=== PATIENT | female | born 1960 | race Caucasian/White ===

== ENCOUNTER → 2021-04-03 16:18 | Outpatient (CLI) | payer BC, SELFPAY ==
[2021-04-03 17:23] LABS: Absolute Lymphocyte Count 2.59 X10^3/uL (0.83-4.51); Absolute Neutrophil Count 5.1 X10^3/uL (2.0-7.7); Basophil# 0.06 X10^3/uL; Basophil% 0.7 % (0-1); Eosinophil# 0.22 X10^3/uL; Eosinophils% 2.6 % (0-5); Hemoglobin 14.9 g/dL (12.0-15.0); Lymphocyte # 2.59 X10^3/ul (0.83-4.51); Lymphocyte % 30.2 % (19-41); Mean Corp Hgb Conc 31.7 g/dL (32-36); Mean Corpuscular Hgb 31.3 pg (27.0-32.0); Mean Corpuscular Volume 98.7 fL (81-99); Mean Platelet Vol. 11.6 fl (6.2-12.0); Monocyte# 0.59 X10^3/uL; Monocyte% 6.9 % (0-10); NRBC Flagged by Analyzer 0 % (0-5); Neutrophil # 5.09 X10^3/uL (2.7-7.7); Neutrophil % 59.3 % (47-70); Platelet Count 259 K/mm3 (150-450); RBC Distribution Width CV 13.8 % (11.6-14.6); RBC Distribution Width SD 51.1 fl (35.1-43.9); Red Blood Count 4.76 M/mm3 (4.2-5.4); White Blood Count 8.6 K/mm3 (4.4-11.0)
[2021-04-03 20:52] LABS: Progesterone Level < 0.21 ng/mL (See Comment)
[2021-04-03 20:55] LABS: CRP < 2.90 mg/L (0.0-3.0); Estradiol 37.6 pg/mL; Free T3 2.7 pg/mL (2.18-3.98); T4 Free Direct 1.04 ng/dL (0.76-1.46); Thyroid Stim Hormone (TSH) 3.19 uIU/mL (0.358-3.74)
[2021-04-07 17:07] LABS: DHEA Sulfate 82.2 ug/dL (29.4-220.5); Testosterone, Free 0.94 ng/dL (0.10-0.85); Testosterone, Total 36 ng/dL (4-50)
[2021-04-07 19:57] LABS: Thyroid Peroxidase AB < 8 IU/mL (0-34)
== END ==
PROVIDERS: PCP Family Medicine; Visit Provider Preventive Medicine Public Health & General Preventive Medicine
DX: N95.1 Menopausal and female climacteric states (principal)
CPT/HCPCS: 36415; 82627; 82670; 84144; 84402; 84403; 84439; 84443; 84481; 85025; 86140; 86376; 82626

== ENCOUNTER → 2021-10-11 06:31 | Outpatient (CLI) | payer BC, SELFPAY ==
[2021-10-11 07:34] LABS: Absolute Lymphocyte Count 1.83 X10^3/uL (0.83-4.51); Absolute Neutrophil Count 4.5 X10^3/uL (2.0-7.7); Basophil# 0.06 X10^3/uL; Basophil% 0.9 % (0-1); Eosinophil# 0.23 X10^3/uL; Eosinophils% 3.3 % (0-5); Hematocrit 45.1 % (37-47); Hemoglobin 14.9 g/dL (12.0-15.0); Lymphocyte # 1.83 X10^3/ul (0.83-4.51); Mean Corpuscular Hgb 30.8 pg (27.0-32.0); Mean Corpuscular Volume 93.4 fL (81-99); Mean Platelet Vol. 11.6 fl (6.2-12.0); Monocyte# 0.44 X10^3/uL; Monocyte% 6.2 % (0-10); NRBC Flagged by Analyzer 0 % (0-5); Neutrophil # 4.47 X10^3/uL (2.7-7.7); Neutrophil % 63.3 % (47-70); Platelet Count 257 K/mm3 (150-450); RBC Distribution Width CV 13.2 % (11.6-14.6); RBC Distribution Width SD 45.2 fl (35.1-43.9); Red Blood Count 4.83 M/mm3 (4.2-5.4); White Blood Count 7.1 K/mm3 (4.4-11.0)
[2021-10-11 08:18] LABS: ALB/GLOB Ratio 1.1 RATIO (0.9-2.4); AST(SGOT) 17 U/L (15-37); Alanine Aminotransfer ALT/SGPT 32 U/L (13-56); Albumin, Serum 3.7 g/dL (3.2-5.0); Alkaline Phosphatase 66 U/L (45-117); Anion Gap 5 (5-15); BUN 19 mg/dL (7-18); BUN/Creat Ratio 25.9 RATIO (10-20); Calcium,Total 9.5 mg/dL (8.5-10.1); Chloride 106 mmol/L (98-107); Creatinine, Serum 0.73 mg/dL (0.55-1.02); EST Glomerular Filtration Rate 86 mL/min (>60); Est Glom Filt Rate - Afr Amer 104 mL/min (>60); Globulin 3.5 g/dL (2.2-4.2); Glucose 151 mg/dL (74-106); Potassium 4.2 mmol/L (3.5-5.1); Protein, Total 7.2 g/dL (6.4-8.2); Sodium Level 137 mmol/L (136-145); T4 Free Direct 1.01 ng/dL (0.76-1.46); Thyroid Stim Hormone (TSH) 1.41 uIU/mL (0.358-3.74)
[2021-10-12 09:25] LABS: Thyroid Peroxidase AB < 8 IU/mL (0-34)
== END ==
PROVIDERS: PCP Family Medicine
DX: E03.9 Hypothyroidism, unspecified (principal); N95.1 Menopausal and female climacteric states
CPT/HCPCS: 36415; 80053; 84439; 84443; 84481; 85025; 86376

== ENCOUNTER → 2022-06-27 | Outpatient (CLI) | payer BC, SELFPAY ==
[2022-06-27 08:03] LABS: Absolute Lymphocyte Count 1.48 X10^3/uL (0.83-4.51); Absolute Neutrophil Count 3.5 X10^3/uL (2.0-7.7); Basophil# 0.05 X10^3/uL; Basophil% 0.9 % (0-1); Eosinophil# 0.11 X10^3/uL; Hematocrit 47.6 % (37-47); Hemoglobin 15.2 g/dL (12.0-15.0); Lymphocyte # 1.48 X10^3/ul (0.83-4.51); Lymphocyte % 26.8 % (19-41); Mean Corp Hgb Conc 31.9 g/dL (32-36); Mean Corpuscular Hgb 30.3 pg (27.0-32.0); Mean Platelet Vol. 11.3 fl (6.2-12.0); Monocyte# 0.36 X10^3/uL; Monocyte% 6.5 % (0-10); NRBC Flagged by Analyzer 0 % (0-5); Neutrophil # 3.49 X10^3/uL (2.7-7.7); Neutrophil % 63.3 % (47-70); Platelet Count 264 K/mm3 (150-450); RBC Distribution Width CV 13.8 % (11.6-14.6); RBC Distribution Width SD 48.8 fl (35.1-43.9); Red Blood Count 5.01 M/mm3 (4.2-5.4); White Blood Count 5.5 K/mm3 (4.4-11.0)
[2022-06-27 15:02] LABS: AST(SGOT) 16 U/L (15-37); Alanine Aminotransfer ALT/SGPT 49 U/L (13-56); Albumin, Serum 3.6 g/dL (3.2-5.0); Alkaline Phosphatase 75 U/L (45-117); Anion Gap 8 (5-15); BUN 28 mg/dL (7-18); BUN/Creat Ratio 34.1 RATIO (10-20); Calcium,Total 9.9 mg/dL (8.5-10.1); Chloride 105 mmol/L (98-107); Creatinine, Serum 0.82 mg/dL (0.55-1.02); EST Glomerular Filtration Rate 75 mL/min (>60); Est Glom Filt Rate - Afr Amer 91 mL/min (>60); Estradiol 27.4 pg/mL; Free T3 2.5 pg/mL (2.18-3.98); Globulin 3.6 g/dL (2.2-4.2); Glucose 122 mg/dL (74-106); Potassium 3.9 mmol/L (3.5-5.1); Protein, Total 7.2 g/dL (6.4-8.2); Sodium Level 141 mmol/L (136-145); Thyroid Stim Hormone (TSH) 3.59 uIU/mL (0.358-3.74)
[2022-06-28 08:09] LABS: DHEA Sulfate 77.4 ug/dL (29.4-220.5)
[2022-06-28 16:32] LABS: Thyroid Peroxidase AB < 9 IU/mL (0-34)
== END | disposition home or self-care (01) ==
LOC: LAB 07:03
PROVIDERS: PCP Family Medicine
DX: E03.9 Hypothyroidism, unspecified (principal); N95.1 Menopausal and female climacteric states
CPT/HCPCS: 36415; 80053; 82627; 82670; 84144; 84403; 84439; 84443; 84481; 85025; 86376; 82626

== ENCOUNTER → 2022-12-17 | Outpatient (CLI) | payer BC, SELFPAY ==
[2022-12-17 07:02] LABS: Absolute Lymphocyte Count 1.59 X10^3/uL (0.83-4.51); Absolute Neutrophil Count 3.1 X10^3/uL (2.0-7.7); Basophil# 0.04 X10^3/uL; Basophil% 0.8 % (0-1); Eosinophil# 0.11 X10^3/uL; Eosinophils% 2.1 % (0-5); Hematocrit 46.2 % (37-47); Hemoglobin 15.1 g/dL (12.0-15.0); Lymphocyte # 1.59 X10^3/ul (0.83-4.51); Lymphocyte % 30.9 % (19-41); Mean Corp Hgb Conc 32.7 g/dL (32-36); Mean Corpuscular Hgb 29.8 pg (27.0-32.0); Mean Corpuscular Volume 91.3 fL (81-99); Mean Platelet Vol. 10.5 fl (6.2-12.0); Monocyte# 0.29 X10^3/uL; Monocyte% 5.6 % (0-10); NRBC Flagged by Analyzer 0 % (0-5); Neutrophil % 60.2 % (47-70); Platelet Count 262 K/mm3 (150-450); RBC Distribution Width CV 14.3 % (11.6-14.6); RBC Distribution Width SD 47.7 fl (35.1-43.9); Red Blood Count 5.06 M/mm3 (4.2-5.4); White Blood Count 5.2 K/mm3 (4.4-11.0)
[2022-12-17 08:09] LABS: ALB/GLOB Ratio 1.1 RATIO (0.9-2.4); AST(SGOT) 26 U/L (15-37); Alanine Aminotransfer ALT/SGPT 60 U/L (13-56); Albumin, Serum 3.7 g/dL (3.2-5.0); Alkaline Phosphatase 83 U/L (45-117); Anion Gap 5 (5-15); BUN 22 mg/dL (7-18); Calcium,Total 10.3 mg/dL (8.5-10.1); Chloride 107 mmol/L (98-107); Creatinine, Serum 0.61 mg/dL (0.55-1.02); EST Glomerular Filtration Rate 106 mL/min (>60); Est Glom Filt Rate - Afr Amer 128 mL/min (>60); Estradiol 16.2 pg/mL; Free T3 2.4 pg/mL (2.18-3.98); Globulin 3.4 g/dL (2.2-4.2); Glucose 118 mg/dL (74-106); Protein, Total 7.1 g/dL (6.4-8.2); Sodium Level 138 mmol/L (136-145); T4 Free Direct 1.02 ng/dL (0.76-1.46); Thyroid Stim Hormone (TSH) 0.06 uIU/mL (0.358-3.74)
[2022-12-17 09:00] LABS: Progesterone Level 0.26 ng/mL (See Comment)
[2022-12-18 11:13] LABS: Hemoglobin A1c 5.8 % (3.8-5.6)
[2022-12-21 12:08] LABS: DHEA Sulfate 75.9 ug/dL (29.4-220.5); Testosterone, Free 0.53 ng/dL (0.10-0.85); Testosterone, Total 41 ng/dL (4-50); Thyroid Peroxidase AB 12 IU/mL (0-34)
== END | disposition home or self-care (01) ==
LOC: LAB 06:42
PROVIDERS: PCP Family Medicine
DX: N95.1 Menopausal and female climacteric states (principal); E11.9 Type 2 diabetes mellitus without complications; E03.9 Hypothyroidism, unspecified
CPT/HCPCS: 36415; 80053; 82627; 82670; 83036; 84144; 84402; 84403; 84439; 84443; 84481; 85025; 86376; 82626

== ENCOUNTER → 2023-08-01 | Outpatient (CLI) | payer BC, SELFPAY ==
--- OUTSIDE RECORDS SUMMARY | 2023-08-01 06:24 | XMS RPT_ITS | CCD ---
Author Name Unknown Address [address] [place] [address] Organization [facility] Care Team Providers Care Dry End Tester Name Role Phone Allen, Jennifer Unavailable Unavailable Allen, Jennifer Unavailable Unavailable Allen, Jennifer Unavailable Unavailable ALLEN, JENNIFER HUBERT Unavailable Unava ilable Sandra Cabezas Primary Care Provider Sandra Cabezas MD Primary Care Provider Sandra Cabezas MD Primary Care Provider Sandra Cabezas Attending Unavailable Sandra Cabezas Referring Unavailable Sandra Cabezas Primary Care Unavailable Sandra Cabezas Referring Unavailable Sandra Cabezas Primary Care Unavailable Sandra Cabezas Attending Unavailable Sandra Cabezas MD Primary Care Provider [phone] SANDRA CABEZAS Attending Unavailable SANDRA CABEZAS Primary Care Unavailable Sandra Cabezas MD Primary Care Provider Allergies Allergy Classification Reported Allergen(s) Allergy Type Date of Onset Reaction(s) Facility (8 sources) calamine; Translations: [CALAMINE] Drug Allergy 6 [facility] Other [facility] (6 sources) amLODIPine Drug Allergy 8 [place] (4 sources) Lisinopril Drug Allergy 8 Other (See Comments) [place] (4 sources) POISON NATALIE EXTRACT Drug Allergy 6 [place] (2 sources) Lisinopril Propensity to adverse reactions 8 Other [facility] Medications Current Medications Medication Drug Class(es) Dates Sig (Normalized) Sig (Original) ascorbic acid 500 mg oral tablet (4 sources) Vitamin C take 1 tablet by mouth once daily vitamin C (ASCORBIC ACID) 500 MG tablet Indications: High dose vit C Take by mouth daily Indications: High dose vit C 0 Active cholecalciferol 0.25 mg oral tablet (4 sources) Vitamin D take 1 tablet by mouth once daily Cholecalciferol (VITAMIN D3) 61369 units TABS Take 1 tablet by mouth daily 0 Active 168 hr cloNIDine 0.33270 mg/hr transdermal system (4 sources) Central alpha-2 Adrenergic Agonist Start: 03-24-2021 apply 1 dose transdermal route every week cloNIDine (CATAPRES) 0.2 MG/24HR PTWK Indications: Essential hypertension, benign Place 1 patch onto the skin once a week 4 patch 12 03/24/2021 Active Completed/Discontinued Medications Medication Drug Class(es) Dates Sig (Normalized) Sig (Original) diphenhydrAMINE (1 source) Histamine-1 Receptor Antagonist diphenhydramine HCl (BENADRYL ALLERGY ORAL) Take by mouth. 0 Active Problems Active Problems Problem Classification Problem Date Documented Date Episodic/Chronic Diabetes mellitus without complication (3 sources) Impaired fasting glycemia; Translations: [Impaired fasting glucose] Onset: 04-12-2023 04-12-2023 Episodic Essential hypertension (13 sources) Essential (primary) hypertension; Translations: [Benign essential hypertension] Onset: 11-23-2016 01-22-2017 Chronic Other nutritional; endocrine; and metabolic disorders (6 sources) Severe obesity; Translations: [Morbid (severe) obesity due to excess calories] Onset: 03-04-2018 03-04-2018 Chronic Residual codes; unclassified (1 source) Postmenopausal state; Translations: [Postmenopausal] Episodic Thyroid disorders (11 sources) Thyroid nodule; Translations: [Hypothyroidism] Onset: 11-23-2016 03-12-2017 Chronic Unclassified (4 sources) Encounter for screening mammogram for malignant neoplasm of breast; Translations: [Patient encounter status] Onset: 02-10-2018 Episodic Unclassified (2 sources) Patient encounter status; Translations: [Screening for osteoporosis] Past or Other Problems Problem Classification Problem Date Documented Da te Episodic/Chronic Allergic reactions (8 sources) Allergic disposition; Translations: [Other allergy status, other than to drugs and biological substances] Onset: 11-23-2016 03-12-2017 Episodic Diabetes mellitus without complication (3 sources) Type 2 diabetes mellitus without complication; Translations: [Type 2 diabetes mellitus without complications] Onset: 03-24-2021 Resolved: 04-12-2023 03-24-2021 Chronic Nonmalignant breast conditions (2 sources) Solitary cyst of left breast; Translations: [Solitary cyst of left breast] Onset: 05-04-2021 Episodic Results Test Name Value Interpretation Reference Range Facil ity Vital Signs Date Time Vital Sign Value Performing Clinician Faci lity 04-12-2023 08:29-0400 Body height 152.4 cm Sandra Cabezas MD Work Phone: [employer] 04-12-2023 08:29-0400 Body mass index (BMI) [Ratio] 41.25 kg/m2 Sandra Cabezas MD Work Phone: [employer] 04-12-2023 08:29-0400 Body temperature 98.2 [degF] Sandra Cabezas MD Work Phone: [employer] 04-12-2023 08:29-0400 Body weight 95.8 kg Sandra Cabezas MD Work Phone: [employer] 04-12-2023 08:29-0400 Diastolic blood pressure 80 mm[Hg] Sandra Cabezas MD Work Phone: [employer] 04-12-2023 08:29-0400 Heart rate 89 /min Sandra Cabezas MD Work Phone: [employer] 04-12-2023 08:29-0400 SaO2% (BldA) [Mass fraction] 96 % Sandra Cabezas MD Work Phone: [employer] 04-12-2023 08:29-0400 Systolic blood pressure 141 mm[Hg] Sandra Cabezas MD Work Phone: [employer] 02-01-2022 16:22-0400 Body temperature 97.7 [degF] Melina Castro APRN.LOCKER ROOM CLERK Work Phone: [facility] 02-01-2022 16:22-0400 Body weight 122.47 kg Melina Castro APRN.LOCKER ROOM CLERK Work Phone: [facility] 02-01-2022 16:22-0400 Diastolic blood pressure 90 mm[Hg] Melina Pramaxxler-Wood GUITAR MAKER HAND.LOCKER ROOM CLERK Work Phone: [facility] 02-01-2022 16:22-0400 Heart rate 83 /min Melina Pramaxxler-Wood GUITAR MAKER HAND.LOCKER ROOM CLERK Work Phone: [facility] 02-01-2022 16:22-0400 Respiratory rate 16 /min Melina Pramaxxler-Wood GUITAR MAKER HAND.LOCKER ROOM CLERK Work Phone: [facility] 02-01-2022 16:22-0400 SaO2% (BldA) [Mass fraction] 97 % Melina Praisler-Wood GUITAR MAKER HAND.LOCKER ROOM CLERK Work Phone: [facility] 02-01-2022 16:22-0400 Systolic blood pressure 142 mm[Hg] Melina Praisler-Wood GUITAR MAKER HAND.[facility] Work Phone: [facility] 04-24-2019 14:33-0400 BP Diastolic 92 mm[Hg] [place], [place] 04-24-2019 14:33-0400 BP Systolic 173 mm[Hg] [place] 04-24-2019 14:33-0400 Pulse (Heart Rate) 94 /min [facility]ayeli [facility] [place] [facility] [place] 04-24-2019 14:33-0400 Pulse Oximetry 94 % [place], [place] 04-24-2019 14:33-0400 Respiratory Rate 18 /min Milnor Nicholas [place], [place] Encounters Encounter Date Encounter Type Care Provider Facility Start: 06-10-2023 Orders Only Sandra valles MD Work Phone: [facility] Family Medicine Procedures Date Procedure Procedure Detail Performing Clinician Start: 04-12-2023 Adult depression scr eening assessment Sandra Cabezas MD Work Phone: Start: 04-12-2023 Lipid 1996 panel - S tez or Plasma Sandra Cabezas MD Work Phone: Start: 04-12-2023 Thyrotropin [Units/v olume] in Serum or Plasma Sandra Cabezas MD Work Phone: Start: 05-01-2022 Mammography Sandra adames MD Work Phone: Start: 04-06-2022 Lipid 1996 panel - S tez or Plasma Sandra Cabezas MD Work Phone: Start: 04-06-2022 Thyrotropin [Units/v olume] in Serum or Plasma Sandra Cabezas MD Work Phone: Start: 04-24-2021 Screening digital br [facility] Sandra Cabezas MD Work Phone: Start: 04-24-2019 Us guidance needle placement img s&i Nayeli Shane Work Phone: Start: 02-10-2018 Mammography Melina Lee APRN.CNP Work Phone: Plan of Treatment Date Care Activity Detail Author Start: 04-12-2028 Lipid panel Lipid Panel [facility] Start: 04-06-2027 Lipid panel Lipid Panel [facility] Start: 04-15-2024 End: 04-15-2024 Patient encounter procedure [facility] Start: 04-12-2024 Depression Screening Depression Scre ening [facility] Start: 04-12-2024 Diabetes mellitus screening Diabetes Screening [facility] Start: 04-12-2024 Thyroid stimulating hormone measurement TSH Level [facility] Start: 03-04-2024 Lipid screen [facility] screen [facility] [place] Start: 05-01-2023 Screening for malign ant neoplasm of breast Mammogram [facility] Start: 04-24-2023 Screening for malign ant neoplasm of breast Breast cancer screen [facility] Work Phone: Start: 04-12-2023 End: 04-12-2024 CBC panel - Blood by Automated count CBC Lab Routine Routine adult health maintenance Expected: 04/12/2023 (Approximate), Expires: 04/12/2024 [facility] Payers Date Payer Category Payer Unknown 2021 Unknown ANTHEM BLUE ACCE SS PPO [id number] 2021-Present [phone] [address] [place] [address] PPO [id number] 2021 Unknown [id number] 2019 Unknown BCBS [place] P PO [id number] 2019-Present [address] [place] [address] [id number] 2015 Unknown BCBS ANTHEM BLUE ACCESS GWEN xxxxxxxxxxxx 2015-Present [address] [place] [address] xxxxxxxxxxxx [id number] 1960 Unknown [id number] 1960 Unknown [id number] Social History Date Type Detail Facility Start: 04-24-2019 End: 04-12-2023 Tobacco smoking status NHIS Former smoker [facility] End: 03-11-1975 History of tobacco use Cigarette Smoker [place] Start: 04-24-2019 End: 04-12-2023 Alcohol intake Yes [place] Start: 09-04-2018 Tobacco Comment smoker x 2 yea rs as a teenager [place] Start: 09-04-2018 Alcohol Comment 2 drinks per month [place], [place] Start: 1960 Sex Assigned At Not on file [place] End: 03-11-1975 History of tobacco use Current smoker [facility] Start: 03-24-2021 End: 04-12-2023 Cigarettes smoked current (pack per day) - Reported [facility] Work Phone: Start: 03-24-2021 End: 04-12-2023 Tobacco use and exposure Never used [facility] Start: 03-24-2021 End: 02-01-2022 Alcohol intake [facility]: Start: 03-24-2021 History SDOH Alcohol Frequency [address] [facility] Work [facility]: Start: 03-24-2021 History SDOH Alcohol Std Drinks 1 [employer] Work Phone: Start: 03-24-2021 History SDOH Social Connections Phone [address] [facility] Work [facility]: Start: 03-24-2021 History SDOH Physica l Activity DPW [address] [facility] Work Phone: Start: 01-22-2022 End: 02-01-2022 Exposure to SARS-CoV-2 (event) Not sure [facility] History of tobacco use Passive smoker [facility] Start: 04-12-2023 Alcohol intake Ex-drinker (finding) [facility] Start: 1960 Sex Assigned At Female [facility] Start: 04-08-2023 Gender identity Identifies as female gender (finding) [facility] Start: 04-08-2023 Sexual orientation Heterosexual (fin ding) [facility] Goals Date Patient Goal Desired Activity /State Clinical Notes 02-01-2022 to 04-12-2023 Assessment & Plan Note - Sandra Caebzas MD - 04/12/2023 9:13 AM EDTAssessment & Plan Note - Sandra Cabezas MD - 04/12/2023 9:13 AM EDTGdariel Cabezas MD - 04/12/2023 8:20 AM EDT Note Date & Type Note Facility 04-12-2023 Evaluation + Plan note Associated Problem(s): Hypoactive thyroid Chronic, stable Feeling better. Not on medicines Check the labs [facility] 04-12-2023 Evaluation + Plan note Associated Problem(s): Essential hypertension, benign Chronic, stable Tolerates the metoprolol Does is half of what it was Check the labs Adjust the dose if indicated [facility] 04-12-2023 Miscellaneous Notes Associated Problem(s): Hypoactive thyroid Chronic, stable Feeling better. Not on medicines Check the labs Associated Problem(s): Essential hypertension, benign Chronic, stable Tolerates the metoprolol Does is half of what it was Check the labs Adjust the dose if indicated documented in this encounter [facility] 04-12-2023 History of Presen t illness Narrative Subjective Patient ID: Griselda Duron is a 62 y.o. female who presents for Annual Exam (Pt is fasting./No questions or concerns when asked/BP readings are good at home) and Med Refill (Pending.). Has lost 50# in the past year. Lost 15# from 2020 to 2021. Watching the carbs and no sugar. Walks 15 minutes each morning. Is feeling this is sustainable. BP at home has been. Watches the salt in the diet. Feels so much better. Last A1C 5.5 in December. Chart reviewed. Review of Systems Constitutional: Positive for activity change and appetite change. Eyes: Negative for visual disturbance. Respiratory: Negative for chest tightness and shortness of breath. Cardiovascular: Negative for chest pain and leg swelling. Gastrointestinal: Negative for abdominal pain, blood in stool, constipation and diarrhea. Endocrine: Negative for polydipsia, polyphagia and polyuria. Genitourinary: Negative for difficulty urinating, dysuria and hematuria. Psychiatric/Behavioral: Negative for sleep disturbance. Objective Physical Exam Vitals and nursing note reviewed. Constitutional: General: She is not in acute distress. Appearance: She is not ill-appearing or toxic-appearing. HENT: Right Ear: Tympanic membrane normal. Left Ear: Tympanic membrane normal. Nose: Nose normal. Mouth/Throat: Pharynx: No oropharyngeal exudate or posterior oropharyngeal erythema. Eyes: General: No scleral icterus. Conjunctiva/sclera: Conjunctivae normal. Pupils: Pupils are equal, round, and reactive to light. Neck: Vascular: No carotid bruit. Cardiovascular: Rate and Rhythm: Normal rate and regular rhythm. Heart sounds: Normal heart sounds. No murmur heard. Pulmonary: Effort: Pulmonary effort is normal. No respiratory distress. Breath sounds: Normal breath sounds. Abdominal: General: Bowel sounds are normal. There is no distension. Tenderness: There is no abdominal tenderness. There is no right CVA tenderness or left CVA tenderness. Musculoskeletal: Cervical back: Neck supple. Lymphadenopathy: Cervical: No cervical adenopathy. Skin: General: Skin is warm and dry. Capillary Refill: Capillary refill takes less than 2 seconds. Coloration: Skin is not jaundiced. Neurological: Mental Status: She is alert and oriented to person, place, and time. Cranial Nerves: No cranial nerve deficit. Psychiatric: Thought Content: Thought content normal. Assessment/Plan Problem List Items Addressed This Visit Circulatory Essential hypertension, benign Chronic, stable Tolerates the metoprolol Does is half of what it was Check the labs Adjust the dose if indicated Relevant Medications metoprolol succinate XL (Toprol-XL) 25 MG 24 hr tablet Endocrine/Metabolic Hypoactive thyroid Chronic, stable Feeling better. Not on medicines Check the labs Relevant Orders TSH Other Visit Diagnoses Routine adult health maintenance - Primary Relevant Orders Lipid panel Comprehensive metabolic panel CBC IFG (impaired fasting glucose) Relevant Orders Hemoglobin A1c documented in this encounter [facility] 02-01-2022 Note HNO ID: [id number] Author: Melina Castro APRN.LOCKER ROOM CLERK Service: ? Author Type: Nurse Practitioner Type: Progress Notes Filed: 02/01/2022 4:36 PM Note Text: Subjective HPI Griselda Duron is a 61 year old female who presents with a rash present on bilateral arms and hands for the past week. She was pulling weeds and believes she pulled some poison sumac. She has been using Armor Gel on the rash and benadryl for the itching. She states the rash bray at time. She denies fever. No airway involvement. Review of Systems Constitutional: Negative for fever. HENT: Negative for sore throat. Respiratory: Negative for shortness of breath. Cardiovascular: Negative. Skin: Positive for itching and rash. BP 142/90 Pulse 83 Temp 36.5 ?C (97.7 ?F) Resp 16 Wt 122.5 kg (270 lb) SpO2 97% BMI 49.38 kg/m? PAST MEDICAL HISTORY Diagnosis Date - History of environmental allergies 11/23/2016 - Hypertension 11/23/2016 PAST SURGICAL HISTORY Procedure Laterality Date - HYSTERECTOMY HX ALLERGIES Calamine MEDICATIONS diphenhydramine HCl (BENADRYL ALLERGY ORAL) Take by mouth. cloNIDine TTS (CATAPRES-TTS) 0.1 mg/24 hr Apply 1 Patch as directed once each week. metoprolol tartrate, short acting, (LOPRESSOR) 50 mg tablet Take 1 tablet by mouth daily at bedtime. valsartan (DIOVAN) 320 mg tablet Take 1 tablet by mouth once daily. predniSONE (DELTASONE) 10 mg tablet Take 4 tabs daily for 3 days, then 2 tabs daily for 3 days, then 1 tab daily for 3 days with food. triamcinolone (KENALOG) 0.025 % cream Apply 1 application to affected area twice daily. No family history on file. Social History Tobacco Use - Smoking status: Former Smoker - Smokeless tobacco: Never Used - Tobacco comment: quit 20 years ago Substance Use Topics - Alcohol use: Yes Comment: occ - Drug use: Not Currently Objective Physical Exam Vitals and nursing note reviewed. Constitutional: Appearance: She is obese. Cardiovascular: Rate and Rhythm: Normal rate and regular rhythm. Heart sounds: Normal heart sounds. Pulmonary: Effort: Pulmonary effort is normal. No respiratory distress. Breath sounds: Normal breath sounds. No stridor. No wheezing or rales. Skin: General: Skin is warm and dry. Findings: Erythema and rash present. Neurological: Mental Status: She is alert. ASSESSMENT/PLAN: 1. Dermatitis due to plants, including poison natalie, sumac, and oak - ICD9: 692.6, ICD10: L25.5 - Oral Steriod tx -Prednisone taper - Topical steriod tx with Rx for steriod cream/ointment- see orders - Anti itch therapy of Oral Benydryl recommended prn - discussed skin care of rash - follow up if symptoms persist or worsen. - PREDNISONE 10 MG TABLET - TRIAMCINOLONE ACETONIDE 0.025 % TOPICAL CREAM - Follow-up with your PCP in 3-5 days if symptoms have not improved or sooner if symptoms worsen - Discussed red flags and need for immediate medical evaluation if any occur. - Discussed supportive care treatment with fluids, rest and analgesia. - Discussed expected course of illness Melina Castro APRN.[facility] 02-01-2022 History of Presen t illness Narrative Images from the original note were not included. Subjective HPI Griselda Duron is a 61 year old female who presents with a rash present on bilateral arms and hands for the past week. She was pulling weeds and believes she pulled some poison sumac. She has been using Armor Gel on the rash and benadryl for the itching. She states the rash bray at time. She denies fever. No airway involvement. Review of Systems Constitutional: Negative for fever. HENT: Negative for sore throat. Respiratory: Negative for shortness of breath. Cardiovascular: Negative. Skin: Positive for itching and rash. BP 142/90 Pulse 83 Temp 36.5 C (97.7 F) Resp 16 Wt 122.5 kg (270 lb) SpO2 97% BMI 49.38 kg/m PAST MEDICAL HISTORY Diagnosis Date History of environmental allergies 11/23/2016 Hypertension 11/23/2016 PAST SURGICAL HISTORY Procedure Laterality Date HYSTERECTOMY HX ALLERGIES [facility] MEDICATIONS diphenhydramine HCl (BENADRYL ALLERGY ORAL) Take by mouth. cloNIDine TTS (CATAPRES-TTS) 0.1 mg/24 hr Apply 1 Patch as directed once each week. metoprolol tartrate, short acting, (LOPRESSOR) 50 mg tablet Take 1 tablet by mouth daily at bedtime. valsartan (DIOVAN) 320 mg tablet Take 1 tablet by mouth once daily. predniSONE (DELTASONE) 10 mg tablet Take 4 tabs daily for 3 days, then 2 tabs daily for 3 days, then 1 tab daily for 3 days with food. triamcinolone (KENALOG) 0.025 % cream Apply 1 application to affected area twice daily. No family history on file. Social History Tobacco Use Smoking status: Former Smoker Smokeless tobacco: Never Used Tobacco comment: quit 20 years ago Substance Use Topics Alcohol use: Yes Comment: occ Drug use: Not Currently Objective Physical Exam Vitals and nursing note reviewed. Constitutional: Appearance: She is obese. Cardiovascular: Rate and Rhythm: Normal rate and regular rhythm. Heart sounds: Normal heart sounds. Pulmonary: Effort: Pulmonary effort is normal. No respiratory distress. Breath sounds: Normal breath sounds. No stridor. No wheezing or rales. Skin: General: Skin is warm and dry. Findings: Erythema and rash present. Neurological: Mental Status: She is alert. ASSESSMENT/PLAN: 1. Dermatitis due to plants, including poison natalie, sumac, and oak - ICD9: 692.6, ICD10: L25.5 - Oral Steriod tx -Prednisone taper - Topical steriod tx with Rx for steriod cream/ointment- see orders - Anti itch therapy of Oral Benydryl recommended prn - discussed skin care of rash - follow up if symptoms persist or worsen. - PREDNISONE 10 MG TABLET - TRIAMCINOLONE ACETONIDE 0.025 % TOPICAL CREAM - Follow-up with your PCP in 3-5 days if symptoms have not improved or sooner if symptoms worsen - Discussed red flags and need for immediate medical evaluation if any occur. - Discussed supportive care treatment with fluids, rest and analgesia. - Discussed expected course of illness Melina Castro APRN.REEMA documented in this encounter [facility] 02-01-2022 Instructions Melina Castro APRN.REEMA - 02/01/2022 4:31 PM EDT ASSESSMENT/PLAN: 1. Dermatitis due to plants, including poison natalie, sumac, and oak - ICD9: 692.6, ICD10: L25.5 - Oral Steriod tx -Prednisone taper - Topical steriod tx with Rx for steriod cream/ointment- see orders - Anti itch therapy of Oral Benydryl recommended prn - discussed skin care of rash - follow up if symptoms persist or worsen. - PREDNISONE 10 MG TABLET - TRIAMCINOLONE ACETONIDE 0.025 % TOPICAL CREAM - Follow-up with your PCP in 3-5 days if symptoms have not improved or sooner if symptoms worsen - Discussed red flags and need for immediate medical evaluation if any occur. - Discussed supportive care treatment with fluids, rest and analgesia. - Discussed expected course of illness Melina Castro APRN.[facility] PATIENT INFO POISON NATALIE INTRODUCTION When the skin comes in direct contact with an irritating or allergy-causing substance, contact dermatitis can develop. Exposure to poison natalie, poison oak, and poison sumac cause more cases of allergic contact dermatitis than all other plant families combined. People of all ethnicities and skin types are at risk for developing poison natalie dermatitis. The severity of the reaction tends to decrease with age, especially in people who have had mild reactions in the past. People in occupations such as firefighting, forestry, and farming are at a higher risk of poison natalie dermatitis because of repeated exposure to toxic plants. POISON NATALIE CAUSES Poison natalie, poison oak, and poison sumac plants all contain a compound called urushiol, which is a light, colorless oil that is found on the fruit, leaves, stem, root, and sap of the plant. When urushiol is exposed to air, it turns brown and the plant leaves develop small black spots. There are several ways that you can be exposed to urushiol: By touching the sap or rubbing against the leaves of the toxic plant By touching something that has urushiol on it, such as animal fur or garden tools By breathing in smoke when toxic plants are burned Ginkgo fruit and the skin of mangoes also contain urushiol and can produce symptoms similar to poison natalie dermatitis. IDENTIFYING POISON NATALIE Leaves of three, let them be is a phrase often used to identify plants that cause poison natalie dermatitis. Generally, poison natalie and poison oak have three leaves with flowering branches on a single stem. Poison sumac has five, seven, or more leaves that angle upward toward the top of the stem. Some types of poison natalie produce a green or off-white fruit in elvira, and in some cases, black dots form on the plants' leaves. It is not always possible to identify the plant by the leaves alone since the appearance can vary depending upon the season, growth cycle, region, and climate. Poison natalie, oak, and sumac plants grow in many areas across the [facility] and throughout the world. East of the [facility], poison natalie commonly grows as a climbing vine. In the [place] area and west, poison natalie tends to grow low to the ground as a shrub. Poison oak most often grows west of the [facility], and poison gideon inhabits boggy areas in the southeastern part of the [facility]. The plants are not usually found in areas at high elevations or in desert climates. POISON NATALIE SIGNS AND SYMPTOMS After contact with urushiol, approximately 50 percent of people develop signs and symptoms of poison natalie dermatitis. The symptoms and severity differ from person to person. The most common signs and symptoms of poison natalie dermatitis are: Intense itching Skin swelling Skin redness These symptoms usually develop within four hours to four days after exposure to the urushiol. After the initial symptoms, you will develop fluid-filled blisters in a line or streak-like pattern. The symptoms are worst within 1 to 14 days after touching the plant, but can develop up to 21 days later if you have never been exposed to urushiol before. The blisters can occur at different times in different people; blisters can develop on the arms several days after blisters on the hands developed. This does not mean that the reaction is spreading from one area of the body to the other. The fluid that leaks from blisters does not cause symptoms. Poison natalie dermatitis is not contagious and cannot be passed from person to person. However, urushiol can be carried under fingernails and on clothes; if another person comes in contact with the urushiol, they can develop poison natalie dermatitis. POISON NATALIE DIAGNOSIS Poison natalie is usually diagnosed based upon how your skin looks. Further testing is not usually necessary. POISON NATALIE TREATMENT Poison natalie dermatitis usually resolves within one to three weeks without treatment. Treatments that may help relieve the itching, soreness, and discomfort caused by poison natalie dermatitis include: Skin treatments For some people, adding oatmeal to a bath, applying cool wet compresses, and applying calamine lotion may help to relieve itching. Once the blisters begin weeping fluid, astringents containing aluminum acetate (Ashleigh's solution) and [place] may help to relieve the rash. Antihistamines Antihistamines may help to relieve itching caused by poison natalie dermatitis. Some antihistamines make you sleepy while others do not. Antihistamines that make you sleepy (eg, diphenhydramine [Benadryl ]) may be helpful if you have trouble sleeping due to itching. Other formulas (eg, loratadine [Claritin ], cetirizine [Zyrtec ]) may be preferable for daytime. Steroid creams Steroid creams may be helpful if they are used during the first few days after symptoms develop. Low potency steroid creams, such as 1 percent hydrocortisone (available in the [place] without prescription) are not usually helpful. A stronger prescription formula may be helpful. Steroids If you develop severe symptoms or the rash covers a large area (especially on the face or genitals), you may need steroid pills or injections (eg, prednisone) to help relieve itching and swelling. Pills are usually given for 14 to 21 days, with the dosage slowly decreased over time. Antibiotics Skin infections are a potential complication of poison natalie, especially if you scratch your skin. If you develop a skin infection because of poison natalie dermatitis, you may need antibiotics to treat the infection. Other treatments An herbal therapy called jewelweed extract has been used to treat poison natalie dermatitis, although it has not been proven effective. You should not use antihistamine creams or lotions, anesthetic creams containing benzocaine, or antibiotic creams containing neomycin or bacitracin to the skin. These creams or ointments could make the rash worse. POISON NATALIE PREVENTION The best way to prevent poison natalie dermatitis is to identify and avoid the plants that cause it. These plants can irritate the skin year round, even during the winter months, and can still cause a reaction years after the plant dies. Wear protective clothing, including long sleeves and pants when working in areas where toxic plants may be found. Keep in mind that the resin and oils from the toxic plants can be carried on clothing, pets, and under fingernails. Wear heavy-duty vinyl gloves when doing yard work or gardening. The oils from toxic plants can seep through latex or rubber gloves. After coming in contact with poison natalie, remove any contaminated clothing and gently wash (do not scrub or rub) you skin and under the fingernails with mild soap and water as soon as possible. Washing within two hours after exposure can reduce the likelihood and severity of symptoms; washing the skin after you have symptoms will not help. Creams and ointments that create a barrier between the skin and the urushiol oil may be somewhat effective for people who are frequently exposed to poison natalie. Bentoquatam (Natalie Block ) is one type of barrier cream that may prevent poison natalie dermatitis. It must be reapplied every four hours and it leaves a melba residue on the skin. Avoid burning poisonous vegetation, which can disperse the plant particles in the smoke, irritate the skin, and cause poison natalie dermatitis. documented in this encounter [facility] documented [facility] this [facility] Work Phone: Evaluation note* Diagnosis Dermatitis due to plants, including poison natalie, sumac, and oak- Primary Contact dermatitis and other eczema due to plants (except food) [facility] Routine adult health maintenance- Primary Essential hypertension, benign Acquired hypothyroidism Unspecified hypothyroidism IFG (impaired fasting glucose) documented in this encounter [facility] HealthEvaluation note* Diagnosis Essential hypertension, benign documented in this encounter [facility] Health Summary Purpose Family History No Family History Records FoundNo Family History Records FoundNo Family History Records FoundNo Family History Records FoundNo Family History Records FoundNo Family History Records FoundNo Family History Records Found Advance Directives Documents on File Type Date 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 Advance Directives and Living Will Power of Check Processor Documents on File Type Date 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 [place] [address] Status Reason Specialty Diagnoses / Procedures Referre d By Contact Referred To Contact Closed Radiology Diagnoses Postmenopausal Screening for osteoporosis Procedures DEXA Bone Density Axial Skeleton Nayeli Shane MD [address] [facility] [address] [place] [address] Discharge Instructions * Instructions* Estela Alvarez RN - 04/24/2019 If you have any questions or problems following your test, please call: [phone] (7AM - 4PM) or after 4PM call [phone] and ask for the angiography radiologist referral and information aide Fine-Needle Thyroid Biopsy: What to Expect at Home Your Recovery During your biopsy, your doctor placed a thin needle through your skin and into your thyroid gland to take a sample of tissue. This may have been done to find what is causing a lump or growth in your thyroid. You may find it uncomfortable to lie still with your head tipped backward. The biopsy site may be sore and tender for 1 to 2 days. This care sheet gives you a general idea about how long it will take for you to recover. But each person recovers at a different pace. Follow the steps below to feel better as quickly as possible. How can you care for yourself at home? Activity Rest when you feel tired. Getting enough sleep will help you recover. Diet You can eat your normal diet. If your stomach is upset, try bland, low-fat foods like plain rice, broiled chicken, toast, and yogurt. Medicines Your doctor will tell you if and when you can restart your medicines. He or she will also give you instructions about taking any new medicines. If you take blood thinners, such as warfarin (Coumadin), clopidogrel (Plavix), or aspirin, be sure to talk to your doctor. He or she will tell you if and when to start taking those medicines again. Make sure that you understand exactly what your doctor wants you to do. Take pain medicines exactly as directed. ? If the doctor gave you a prescription medicine for pain, take it as prescribed. ? If you are not taking a prescription pain medicine, ask your doctor if you can take an qidh-rug-ixmsbdy medicine. If you think your pain medicine is making you sick to your stomach: ? Take your medicine after meals (unless your doctor has told you not to). ? Ask your doctor for a different pain medicine. Incision care Keep the biopsy site covered and dry for 48 hours. A small amount of bleeding from the biopsy site can be expected. Ask your doctor how much drainage to expect. Follow-up care is a bullock part of your treatment and safety. Be sure to make and go to all appointments, and call your doctor if you are having problems. It's also a good idea to know your test resultsand keep a list of the medicines you take. When should you call for help? Call 911 anytime you think you may need emergency care. For example, call if: You have severe trouble breathing. Call your doctor now or seek immediate medical care if: You have a lot of bleeding through the bandage. You have a hard time swallowing. You have new or worsening pain. You have symptoms of infection, such as: ? Increased pain, swelling, warmth, or redness. ? Red streaks leading from the biopsy site. ? Pus draining from the biopsy site. ? A fever. Watch closely for any changes in your health, and be sure to contact your doctor if: You're not getting better as expected. You notice a change in your voice. Where can you learn more? Go to [email or web address] and sign in to your [employer] account. Enter O887 in the Search Health Information box to learn more about Fine-Needle Thyroid Biopsy: What to Expect at Home. If you do not have an account, please click on the Sign Up Now link. Current as of: May 13, 2018 Content Version: 12.1 2130-1285 [employer]. Care instructions adapted under license by [employer]. If youhave questions about a medical condition or this instruction, always ask your healthcare professional. [employer] disclaims any warranty or liability for your use of this information. documented in this encounter History of Present Illness * Estela Alvarez RN - 04/24/2019 2:10 PM EDT Patient arrived to ultrasound department for thyroid biopsy. Patient ambulating without difficulty.History, allergies and medications review with patient. discussing procedure with patient and informed consent obtained. Left anterior neck prepped in sterile fashion. FNA x 3 obtained from left thyroid nodule. Patient tolerated procedure well. Denies pain. Bandaid applied. Homegoing instuctions reviewed with patient. Ice pack given to patient. Patient discharged to home. documented in this encounter Assessments Diagnosis Left thyroid nodule Nontoxic uninodular goiter Diagnosis Postmenopausal Asymptomatic postmenopausal status (age-related) (natural) Screening for osteoporosis Special screening for osteoporosis Diagnosis Screening mammogram, encounter for Additional Source Comments INFORMATION SOURCE (unrecogn ized section and content) DATE CREATED AUTHOR AUTHOR'S ORGANIZ ATION 02/18/2018 [facility] DATE CREATED AUTHOR AUTHOR'S ORGANIZ ATION 02/18/2018 [facility] DATE CREATED AUTHOR AUTHOR'S ORGANIZ ATION 02/05/2022 [facility] DATE CREATED AUTHOR AUTHOR'S ORGANIZ ATION 05/02/2022 [facility] DATE CREATED AUTHOR AUTHOR'S ORGANIZ ATION 05/03/2022 [facility] DATE CREATED AUTHOR AUTHOR'S ORGANIZ ATION 04/16/2023 [facility] Source Comments (unrecognize d section and content) In the event this informatio n is protected by the Federal Confidentiality of Alcohol and Drug Abuse Patient Records regulations: The Federal rules restrict any use of the information to criminally investigate or prosecute any alcohol or drug abuse patient.[facility] Reason for Visit (unrecogniz ed section and content) Reason Comments Annual Exam Pt is fasting.No que stions or concerns when askedBP readings are good at home Med Refill Pending. Care Teams (unrecognized sec tion and content) Dry End Tester Relationship Specialty Start Date End Date Sandra Cabezas MD [address] [place] [address], [address] [place], [place] [id number] PCP - General 02/27/19 Dry End Tester Relationship Specialty Start Date End Date Sandra Cabezas MD [address] [place] [address] [place] [id number] PCP - General 02/27/19 FOR RECORDS PERTAINING TO PATIENTS WHO ARE OR HAVE BEEN ENROLLED IN A CHEMICAL DEPENDENCY/SUBSTANCEABUSE PROGRAM, SOME INFORMATION MAY BE OMITTED. This clinical summary was aggregated from multiple sources. Caution should be exercised in using it in the provision of clinical care. This summary normalizes information from multiple sources, and as a consequence, information in this document may materially change the coding, format and clinical context of patient data. In addition, data may be omitted in some cases. CLINICAL DECISIONS SHOULD BE BASED ON THE PRIMARY CLINICAL RECORDS. [facility] [employer] [facility]. provides no warranty or guarantee of the accuracy or completeness of information in this document.
[2023-08-01 07:25] LABS: Absolute Lymphocyte Count 1.76 X10^3/uL (0.83-4.51); Absolute Neutrophil Count 2.3 X10^3/uL (2.0-7.7); Basophil# 0.04 X10^3/uL; Basophil% 0.8 % (0-1); Eosinophil# 0.14 X10^3/uL; Hematocrit 44.9 % (37-47); Hemoglobin 14.5 g/dL (12.0-15.0); Lymphocyte # 1.76 X10^3/ul (0.83-4.51); Lymphocyte % 37.4 % (19-41); Mean Corp Hgb Conc 32.3 g/dL (32-36); Mean Corpuscular Hgb 29.8 pg (27.0-32.0); Mean Corpuscular Volume 92.4 fL (81-99); Monocyte# 0.41 X10^3/uL; Monocyte% 8.7 % (0-10); NRBC Flagged by Analyzer 0 % (0-5); Neutrophil # 2.34 X10^3/uL (2.7-7.7); Neutrophil % 49.7 % (47-70); Platelet Count 232 K/mm3 (150-450); RBC Distribution Width CV 13.3 % (11.6-14.6); RBC Distribution Width SD 45.3 fl (35.1-43.9); Red Blood Count 4.86 M/mm3 (4.2-5.4); White Blood Count 4.7 K/mm3 (4.4-11.0)
[2023-08-01 08:30] LABS: AST(SGOT) 11 U/L (15-37); Alanine Aminotransfer ALT/SGPT 35 U/L (13-56); Albumin, Serum 3.5 g/dL (3.2-5.0); Alkaline Phosphatase 81 U/L (45-117); Anion Gap 3 (5-15); BUN 32 mg/dL (7-18); BUN/Creat Ratio 54.3 RATIO (10-20); Calcium,Total 10.5 mg/dL (8.5-10.1); Chloride 108 mmol/L (98-107); Creatinine, Serum 0.59 mg/dL (0.55-1.02); EST Glomerular Filtration Rate 110 mL/min (>60); Est Glom Filt Rate - Afr Amer 133 mL/min (>60); Estradiol < 11.0 pg/mL; Free T3 3.2 pg/mL (2.18-3.98); Globulin 3.4 g/dL (2.2-4.2); Glucose 124 mg/dL (74-106); Potassium 3.6 mmol/L (3.5-5.1); Protein, Total 6.9 g/dL (6.4-8.2); Sodium Level 137 mmol/L (136-145); T4 Free Direct 1.01 ng/dL (0.76-1.46); Thyroid Stim Hormone (TSH) 0.01 uIU/mL (0.358-3.74)
[2023-08-01 09:29] LABS: Progesterone Level 0.37 ng/mL (See Comment)
[2023-08-01 10:53] LABS: Hemoglobin A1c 5.7 % (3.8-5.6)
[2023-08-02 09:09] LABS: DHEA Sulfate 66.8 ug/dL (29.4-220.5); Thyroid Peroxidase AB 10 IU/mL (0-34)
== END | disposition home or self-care (01) ==
LOC: LAB 06:22
PROVIDERS: PCP Family Medicine
DX: N95.1 Menopausal and female climacteric states (principal); E11.9 Type 2 diabetes mellitus without complications; E03.9 Hypothyroidism, unspecified
CPT/HCPCS: 36415; 80053; 82627; 82670; 83036; 84144; 84403; 84439; 84443; 84481; 85025; 86376; 82626

== ENCOUNTER → 2024-04-27 | Outpatient (CLI) | payer BC, SELFPAY ==
[2024-04-27 06:57] LABS: Absolute Lymphocyte Count 1.41 X10^3/uL (0.83-4.51); Absolute Neutrophil Count 3.6 X10^3/uL (2.0-7.7); Basophil# 0.03 X10^3/uL; Basophil% 0.6 % (0-1); Eosinophil# 0.07 X10^3/uL; Eosinophils% 1.3 % (0-5); Hemoglobin 14.9 g/dL (12.0-15.0); Lymphocyte # 1.41 X10^3/ul (0.83-4.51); Lymphocyte % 26.1 % (19-41); Mean Corp Hgb Conc 32.4 g/dL (32-36); Mean Corpuscular Hgb 30.7 pg (27.0-32.0); Mean Corpuscular Volume 94.8 fL (81-99); Mean Platelet Vol. 10.7 fl (6.2-12.0); Monocyte# 0.25 X10^3/uL; Monocyte% 4.6 % (0-10); NRBC Flagged by Analyzer 0 % (0-5); Neutrophil # 3.63 X10^3/uL (2.7-7.7); Neutrophil % 67.2 % (47-70); Platelet Count 221 K/mm3 (150-450); RBC Distribution Width CV 13.7 % (11.6-14.6); Red Blood Count 4.85 M/mm3 (4.2-5.4); White Blood Count 5.4 K/mm3 (4.4-11.0)
[2024-04-27 08:01] LABS: ALB/GLOB Ratio 1.3 RATIO (0.9-2.4); AST(SGOT) 32 U/L (15-37); Alanine Aminotransfer ALT/SGPT 76 U/L (13-56); Albumin, Serum 3.9 g/dL (3.2-5.0); Alkaline Phosphatase 103 U/L (45-117); Anion Gap 10 (5-15); BUN 19 mg/dL (7-18); BUN/Creat Ratio 34.2 RATIO (10-20); Calcium,Total 10.3 mg/dL (8.5-10.1); Chloride 107 mmol/L (98-107); Creatinine, Serum 0.56 mg/dL (0.55-1.02); EST Glomerular Filtration Rate 118 mL/min (>60); Est Glom Filt Rate - Afr Amer 143 mL/min (>60); Estradiol < 11.0 pg/mL; Free T3 2.5 pg/mL (2.18-3.98); Globulin 3.1 g/dL (2.2-4.2); Glucose 134 mg/dL (74-106); Potassium 3.6 mmol/L (3.5-5.1); Sodium Level 140 mmol/L (136-145); T4 Free Direct 0.78 ng/dL (0.76-1.46)
[2024-04-27 08:53] LABS: Hemoglobin A1c 5.6 % (3.8-5.6)
[2024-04-28 08:13] LABS: DHEA Sulfate 59.2 ug/dL (29.4-220.5); Thyroid Peroxidase AB < 9 IU/mL (0-34)
== END | disposition home or self-care (01) ==
LOC: LAB 06:15
PROVIDERS: PCP Family Medicine
DX: E03.9 Hypothyroidism, unspecified (principal); E11.9 Type 2 diabetes mellitus without complications; N95.1 Menopausal and female climacteric states
CPT/HCPCS: 36415; 80053; 82627; 82670; 83036; 84144; 84403; 84439; 84443; 84481; 85025; 86376; 82626

== ENCOUNTER → 2025-04-19 | Outpatient (CLI) | payer BC, SELFPAY ==
[2025-04-19 06:54] LABS: Hematocrit 44.4 % (37-47); Hemoglobin 14.8 g/dL (12.0-15.0); Immature Granulocytes Count 0.020 X10^3/uL (0.0-0.0); Mean Corp Hgb Conc 33.3 g/dL (32-36); Mean Corpuscular Volume 93.1 fL (81-99); Mean Platelet Vol. 10.3 fl (6.2-12.0); NRBC Flagged by Analyzer 0 % (0-5); Platelet Count 279 K/mm3 (150-450); RBC Distribution Width CV 13.8 % (11.6-14.6); RBC Distribution Width SD 47.6 fl (35.1-43.9); Red Blood Count 4.77 M/mm3 (4.2-5.4); White Blood Count 4.8 K/mm3 (4.4-11.0)
[2025-04-19 07:46] LABS: AST(SGOT) 18 U/L (<=31); Alanine Aminotransfer ALT/SGPT 24 U/L (<=34); Albumin, Serum 4.2 g/dL (3.4-4.8); Alkaline Phosphatase 99 U/L (35-104); Anion Gap 10 (5-15); BUN 19 mg/dL (4-19); BUN/Creat Ratio 33.7 RATIO (10-20); Calcium,Total 10.0 mg/dL (7.6-11.0); Carbon Dioxide 23.8 mmol/L (21.0-32.0); Chloride 103 mmol/L (98-108); Globulin 2.2 g/dL (2.2-4.2); Glucose 110 mg/dL (70-99); Potassium 4.4 mmol/L (3.3-5.1)
[2025-04-19 07:57] LABS: Free T3 3.4 pg/mL (2.18-3.98); Vitamin D,25 Hydroxy 107.0 ng/mL (30-100)
[2025-04-22 04:07] LABS: PROGESTERONE 0.2 ng/mL (.)
== END | disposition home or self-care (01) ==
LOC: LAB 06:01
PROVIDERS: PCP Family Medicine
DX: E03.9 Hypothyroidism, unspecified (principal); E55.9 Vitamin D deficiency, unspecified; N95.1 Menopausal and female climacteric states
CPT/HCPCS: 36415; 80053; 82306; 82670; 84144; 84403; 84439; 84443; 84481; 85025; 86376